=== PATIENT | male | born 1960 ===

== ENCOUNTER 2016-10-04 08:07 | Emergency (ER) | payer MEDICAID ==
[2016-10-04 08:07] VITALS: BMI 28.1
[2016-10-04 08:23] VITALS: BP 103/70; PULSE 62; RESP 18; TEMP 97.9; O2SAT 97
[2016-10-04] MEDS ORDERED: Lidocaine 5% Patch TD STA (08:56)
--- NOTE | 2016-10-04 11:39 | C.PDOC ---
History Of Present Illness 55 year old male presents to the emergency department with complaints of aggravated lower back that radiates down left leg and can "barely walk" since a slip and fall on 09/16/2016. Patient notes a history of disc herniations in the lower back from a previous injury. He states he was seen at another hospital and discharged with ibuprofen and valium but states ibuprofen is not working. Patient states he has not been eating because of the pain and has no urination or bowel movement for three days, secondary to the pain. He denies any numbness , tingling, saddle anesthesia, fever, chills, or current IVDA. Time Seen by Provider: 10/04/16 08:37 Chief Complaint (Nursing): Back Pain History Per: Patient History/Exam Limitations: no limitations Onset/Duration Of Symptoms: Days (rashad) Current Symptoms Are (Timing): Still Present Quality Of Discomfort: "Pain" Previous Symptoms: Back Pain (lower back herniated discs from previous injury) Associated Symptoms: None Recent travel outside of the [place]: No Past Medical History Reviewed: Historical Data, Nursing Documentation, Vital Signs Vital Signs: Last Vital Signs Temp 97.9 F 10/04/16 08:10 Pulse 62 10/04/16 08:10 Resp 18 10/04/16 08:55 BP 103/70 10/04/16 08:10 Pulse Ox 97 10/04/16 12:03 - Medical History PMH: COPD, Chronic Pain (right hip) Family History: States: Unknown Family Hx - Social History Hx Alcohol Use: No Hx Substance Use: No - Immunization History Hx Tetanus Toxoid Vaccination: No Hx Influenza Vaccination: No (refused) Hx Pneumococcal Vaccination: No (refused) Review Of Systems Constitutional: Negative for: Fever, Chills Cardiovascular: Negative for: Chest Pain, Palpitations Respiratory: Negative for: Cough, Shortness of Breath Gastrointestinal: Negative for: Nausea, Vomiting, Abdominal Pain, Diarrhea Genitourinary: Positive for: Other (no urination and no bowel movement for three days ) Musculoskeletal: Positive for: Back Pain (lower back pain ), Leg Pain (left leg pain radiating from lower back) Neurological: Negative for: Weakness, Numbness Physical Exam - Physical Exam Appears: Non-toxic, Other (Patient appears uncomfortable and is standing/ leaning on cane) Skin: Warm, Dry Head: Atraumatic Eye(s): bilateral: Normal Inspection, PERRL, EOMI Oral Mucosa: Moist Neck: Supple Chest: Symmetrical, No Deformity Cardiovascular: Rhythm Regular Respiratory: Normal Breath Sounds, No Rales, No Rhonchi, No Wheezing Gastrointestinal/Abdominal: Soft, No Tenderness, No Distention (no bladder distension ), No Guarding, No Rebound Back: Vertebral Tenderness (midline lumbar tenderness), Other (left sciatic notch tenderness) Extremity: Normal ROM, No Tenderness, No Pedal Edema, Other (Sensation intact in groin area) Pulses: Left Femoral: Normal, Right Femoral: Normal, Left Dorsalis Pedis: Normal , Right Dorsalis Pedis: Normal Neurological/Psych: Oriented x3, Normal Speech, Normal Cognition, Normal Cranial Nerves, Normal Motor, Normal Sensation Gait: With Assistance (use of cane) ED Course And Treatment O2 Sat by Pulse Oximetry: 97 (room air ) Progress Note: Patient refused bladder scan by nurse and ambulated out of emergency department before nurse could medicate. Medical Decision Making Medical Decision Making: Assessment plan: Given patient report of no urination for three days, bladder scan was requested to be performed by RN. Pain medications were also ordered. Disposition - Disposition Disposition: ELOPEMENT - ER ONLY Disposition Time: 08:50 Condition: STABLE Forms: [facility] (Kiswahili) - Clinical Impression Clinical Impression: Low back pain - Scribe Statement The provider has reviewed the documentation as recorded by the Scribtarsha Garcia All medical record entries made by the Lisethibtarsha were at my direction and personally dictated by me. I have reviewed the chart and agree that the record accurately reflects my personal performance of the history, physical exam, medical decision making, and the department course for this patient. I have also personally directed, reviewed, and agree with the discharge instructions and disposition.
== END 2016-10-04 08:55 | disposition left against medical advice (07) ==
LOC: C.ER 08:07
DX: M54.5 Low back pain (principal)

== ENCOUNTER 2016-11-25 17:45 | Emergency (ER) | payer MEDICAID ==
[2016-11-25 17:45] VITALS: BMI 28.1
[2016-11-25 19:54] VITALS: BP 120/79; PULSE 79; RESP 18; TEMP 98.9; O2SAT 95
--- NOTE | 2016-11-25 19:55 | C.PDOC ---
History Of Present Illness 55 y/o male presents to ED with complaints of vague pain for 1 week. Patient states pain have resolved today and just wants to be "checked out" with no further evaluation. No other complaints at this time. Time Seen by Provider: 11/25/16 19:26 Chief Complaint (Nursing): Shortness Of Breath History Per: Patient History/Exam Limitations: no limitations Onset/Duration Of Symptoms: Days Current Symptoms Are (Timing): Still Present Past Medical History Reviewed: Historical Data, Nursing Documentation, Vital Signs Vital Signs: Last Vital Signs Temp 98.9 F 11/25/16 19:53 Pulse 79 11/25/16 19:53 Resp 18 11/25/16 19:53 BP 120/79 11/25/16 19:53 Pulse Ox 95 11/25/16 19:55 - Medical History PMH: COPD, HTN, Hypercholesterolemia, Chronic Pain (right hip) Surgical History: No Surg Hx Family History: States: No Known Family Hx - Social History Hx Alcohol Use: No Hx Substance Use: Yes - Immunization History Hx Tetanus Toxoid Vaccination: No Hx Influenza Vaccination: No (refused) Hx Pneumococcal Vaccination: No (refused) Review Of Systems Except As Marked, All Systems Reviewed And Found Negative. Constitutional: Negative for: Fever, Chills Cardiovascular: Negative for: Chest Pain Respiratory: Negative for: Shortness of Breath Gastrointestinal: Negative for: Nausea, Vomiting Musculoskeletal: Positive for: Other (Generalized pain) Skin: Negative for: Rash Neurological: Negative for: Weakness, Numbness Physical Exam - Physical Exam Appears: Non-toxic, No Acute Distress Skin: Normal Color, Warm, Dry, No Rash Head: Atraumatic, Normacephalic Eye(s): bilateral: Normal Inspection Oral Mucosa: Moist Neck: Normal ROM, Supple Chest: Symmetrical Cardiovascular: Rhythm Regular, No Murmur Respiratory: Normal Breath Sounds, No Rales, No Rhonchi, No Wheezing Gastrointestinal/Abdominal: Soft, No Tenderness, No Guarding, No Rebound Extremity: Normal ROM, Capillary Refill (<2 seconds) Neurological/Psych: Oriented x3, Normal Motor, Normal Sensation ED Course And Treatment O2 Sat by Pulse Oximetry: 95 (RA) Pulse Ox Interpretation: Normal Medical Decision Making Medical Decision Making: vague complaints over past week, no acute issues, h/o substance abuse, asymptomatic, normal exm and declines w/u at this time with informed consent. Disposition Doctor Will See Patient In The: Office Counseled Patient/Family Regarding: Studies Performed, Diagnosis - Disposition Referrals: [facility] [Outside] [facility] [Outside] [facility] [Outside] Disposition: HOME/ ROUTINE Disposition Time: 19:55 Condition: GOOD Forms: General Discharge Instructions, [facility] (Ghanaian) - Clinical Impression Clinical Impression: Pain - Scribe Statement The provider has reviewed the documentation as recorded by the Scribtarsha Covarrubias All medical record entries made by the Lisethibtarsha were at my direction and personally dictated by me. I have reviewed the chart and agree that the record accurately reflects my personal performance of the history, physical exam, medical decision making, and the department course for this patient. I have also personally directed, reviewed, and agree with the discharge instructions and disposition.
--- NOTE | 2016-11-26 14:52 | CARD ---
APPROVED REPORT EKG Measurement Heart [id number] <Conclusion> Normal sinus rhythm Normal ECG
== END 2016-11-25 19:57 | disposition home or self-care (01) ==
LOC: C.ER 17:45
DX: R52 Pain, unspecified (principal); I10 Essential (primary) hypertension; F17.210 Nicotine dependence, cigarettes, uncomplicated